=== PATIENT | male | born 1965 | race Hispanic/Latino ===

== ENCOUNTER 2019-02-26 23:32 | Inpatient (IN) | payer BC ==
[2019-02-27] MEDS ORDERED: Vancomycin HCl 1.5 GM in Sodium Chloride 0.9% 250 ML 300 ML IVPB SCH (00:30)
[2019-02-27] MEDS ORDERED: Ondansetron ODT 4 MG TAB SL PRN (01:45)
[2019-02-27] MEDS ORDERED: Ondansetron PF 4 MG/2 ML Vial IVP PRN (01:45)
[2019-02-27] MEDS ORDERED: Sodium Chloride 0.9% 1,000 ML IV SCH ×2 (01:45→04:30)
[2019-02-27 04:17] VITALS: BMI 44.6
[2019-02-27] MEDS ORDERED: Phenazopyridine HCl 97.5 MG TABLET PO SCH (04:30)
[2019-02-27] MEDS ORDERED: Vancomycin HCl 1 GM in Premix Bag 1 BAG IVPB SCH (04:45)
[2019-02-27] MEDS ORDERED: Vancomycin HCl 500 MG in Sodium Chloride 0.9% 100 ML IVPB SCH (04:45)
[2019-02-27] MEDS: Sodium Chloride 0.9% 1,000 ML IV SCH ×2 (08:44→21:11)
--- NOTE | 2019-02-27 08:55 | HP ---
CHIEF COMPLAINT: Fatigue and difficulty concentrating. HISTORY OF PRESENT ILLNESS: This patient is a 53-year-old male, who states he was working on an oil rig locally, although he lives down near [place], [place]. The patient states that he has stayed on the rig 14 days at a time. 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 He thought he was just out of shape and fatigued, but then started voiding frequently about every 10 minutes with a significant amount of urinary urgency. Yesterday, he also started developing some diarrhea, which he describes as green as in the color of an avocado, which just being very watery in nature. He also has some urgency and some incontinence there. The patient yesterday started feeling more as though he was having difficulty concentrating and borderline confused. He was having significant fever. He presented to the emergency department in [place]. There, his workup was notable for temperature of a 103, white count of 22,000, clear chest x-ray, and CT scan showing enlarged prostate with evidence of inflammation consistent with a prostatitis. The patient was diagnosed with sepsis and prostatitis, and was transferred here after receiving Rocephin and vancomycin. Of note, his urine did show some leukocytosis as well. Currently, the patient says he feels substantially better after having received some fluid hydration, although he reports he still feels like his mouth is very dry. REVIEW OF SYSTEMS: All systems reviewed, all pertinent positives and negatives noted in the history of present illness. PAST MEDICAL HISTORY: Notable for history of hypertension. However, the patient believes it was work related and once he changed his job conditions, he was able to go off his antihypertensives. SURGICAL HISTORY: LASIK. FAMILY HISTORY: Mother had diabetes. Father young with esophageal cancer. SOCIAL HISTORY: The patient is a nonsmoker, nondrug user. He drinks a modest amount of beer about 6 per week, but did not drink any beer at all when he is on his 14 days on the oil rig. He is . He is full code, and his would be his surrogate decision maker. ALLERGIES: NONE. CURRENT MEDICATIONS: None. PHYSICAL EXAMINATION: VITAL SIGNS: T-max here is 100.2. Temperature is 99.5, pulse 102, BP 119/56, respirations 20, O2 saturation 97% on room air. GENERAL APPEARANCE: Age-appropriate male, in no distress. He is awake, alert, oriented, pleasant, and cooperative. He is morbidly obese. HEENT: BARBARA. No OP lesions. His posterior oral airway is difficult to assess because of large tongue. NECK: Thick and difficult to examine as a result of that and his obesity. HEART: Regular rate and rhythm without murmurs, gallops, or rubs. LUNGS: Clear to auscultation bilaterally with good chest wall expansion and air exchange. ABDOMEN: Soft, nontender, and nondistended. He has no suprapubic tenderness. Bowel sounds are normal. EXTREMITIES: No cyanosis, clubbing, or edema. NEUROLOGICAL: The patient is normal. Has no deficits noted. Has spontaneous movement in all extremities and is cognitively intact. PSYCH: The patient has normal affect and behavior. LABORATORY DATA: White count was 22,000, hemoglobin 14.7, platelets 186, with 83% neutrophils, 5% bands, 4% lymphocytes, and 8% monocytes. Sodium was 131, potassium 3.7, chloride 100, CO2 is 24, BUN 11, creatinine 0.88, glucose 108. LFTs normal. Urinalysis showed small leukocyte esterase with 11 to 20 white cells and rare to few bacteria. Flu screen was negative. Chest x-ray reported was negative. CT showed the evidence of prostatitis. IMPRESSION AND PLAN: 1. Sepsis likely secondary to prostatitis, although the patient has some diarrhea as well. We will continue with the vancomycin and Rocephin. We will send stool studies and continue to hydrate. Of note, the patient's lactic acid level was normal at 1.4. The patient is feeling better after some hydration. Once it appears that he is stable, can switch over to p.o. antibiotics. 2. Hyponatremia. The patient may be slightly dehydrated. We will continue to hydrate and recheck his lab values in the morning. 3. Morbid obesity. Job ID: [id number] [facility]
[2019-02-27] MEDS: Phenazopyridine HCl 97.5 MG TABLET PO SCH ×2 (11:51→17:11)
[2019-02-27] MEDS: cefTRIAXone\\ROCEPHIN 2 GM in Sodium Chloride 0.9% 100 ML IVPB SCH (21:14)
[2019-02-27] MEDS: Acetaminophen 325 MG TAB PO PRN (23:14)
[2019-02-28] MEDS: Sodium Chloride 0.9% 1,000 ML IV SCH ×2 (04:11→14:45)
[2019-02-28 05:47] LABS: #Eosinphils 0.1 thou/uL (0.0-0.7); #Lymphocytes 2.4 thou/uL (1.20-3.40); #Neutrophils 15.5 thou/uL (1.40-6.50); %Basophils 0.1 % (0.0-1.0); %Eosinophils 0.4 % (0.0-10.0); %Lymphocytes 12.4 % (21.0-51.0); %Monocytes 5.3 % (0.0-10.0); %Neutrophils 81.8 % (42.0-75.0); Hemoglobin 13.8 g/dL (14.0-18.0); Mean Corpuscular Hemoglobin 29.1 pg (27.0-31.0); Mean Corpuscular Volume 88.1 fL (78.0-98.0); Mean Platelet Volume 8.2 fL (7.4-10.4); Platelet Count 154 thou/uL (130-400); RBC Distribution Width 13.7 % (11.5-14.5); Red Blood Cell (RBC) Count 4.73 mill/uL (4.70-6.10)
[2019-02-28 06:13] LABS: Anion Gap 17 mmol/L (10-20); BUN (Urea Nitrogen) 8 mg/dL (8.4-25.7); Calc. Creatinine Clearance 206 mL/min (70-130); Calcium 8.7 mg/dL (7.8-10.44); Carbon Dioxide 17 mmol/L (22-29); Chloride 106 mmol/L (98-107); Estimated GFR-MDRD Greater than 90; Glucose 117 mg/dL (70-105); Potassium 4.1 mmol/L (3.5-5.1); Sodium 136 mmol/L (136-145)
[2019-02-28] MEDS: Phenazopyridine HCl 97.5 MG TABLET PO SCH ×3 (07:27→17:27)
--- NOTE | 2019-02-28 11:01 | PRG ---
DATE OF SERVICE: 02/28/2019 SUBJECTIVE: Mr. Carrera is feeling significantly better today. He is getting up and around the room. He has a bit more energy and he is thinking clearly. He has not had any diarrhea since yesterday. OBJECTIVE: VITAL SIGNS: T-max is 100.9, temperature 98.8, pulse 91, respirations are 24, O2 saturation 94% on room air, and BP 132/73. GENERAL APPEARANCE: Age-appropriate male, he is in no distress. He is awake and alert. HEART: Regular without murmur. LUNGS: Clear. ABDOMEN: Benign. No CVAT. EXTREMITIES: No edema. NEUROLOGIC: Intact. PSYCHIATRIC: Normal affect and behavior. LABORATORY DATA: Urine cultures growing E coli, but low colony count. White count 19.0, hemoglobin 13.8, CO2 of 17, BUN 8, and creatinine 0.82. IMPRESSION AND PLAN: 1. Sepsis secondary to prostate infection. Continues to have white count, some low-grade acidosis. We will make him inpatient. Continue IV fluids and antibiotics. 2. Prostate infection. I counseled the patient at length. Sounds like he may have had some symptoms of a prostate infection a couple of years ago. It is possible that he has had a smoldering case of chronic prostatitis; given the E coli culture. We will discontinue the vancomycin. 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 Explained that he will need to be on antibiotics probably for full two weeks and will need to follow up with his PCP once he is discharged. 3. Hyponatremia, resolved with IV fluids. 4. Morbid obesity. Job ID: [id number]
[2019-02-28] MEDS: Acetaminophen 325 MG TAB PO PRN (18:11)
[2019-02-28] MEDS: cefTRIAXone\\ROCEPHIN 2 GM in Sodium Chloride 0.9% 100 ML IVPB SCH (22:00)
[2019-03-01] MEDS: Sodium Chloride 0.9% 1,000 ML IV SCH (00:26)
[2019-03-01] MEDS: Acetaminophen 325 MG TAB PO PRN (00:29)
[2019-03-01 06:06] LABS: #Basophils 0.1 thou/uL (0.0-0.2); #Eosinphils 0.1 thou/uL (0.0-0.7); #Lymphocytes 1.9 thou/uL (1.20-3.40); #Monocytes 0.6 thou/uL (0.11-0.59); #Neutrophils 7.5 thou/uL (1.40-6.50); %Basophils 0.5 % (0.0-1.0); %Eosinophils 0.9 % (0.0-10.0); %Lymphocytes 18.9 % (21.0-51.0); %Monocytes 6.1 % (0.0-10.0); %Neutrophils 73.6 % (42.0-75.0); Hemoglobin 13.1 g/dL (14.0-18.0); Mean Corpuscular Volume 87.9 fL (78.0-98.0); Mean Platelet Volume 7.7 fL (7.4-10.4); Platelet Count 158 thou/uL (130-400); RBC Distribution Width 13.6 % (11.5-14.5); Red Blood Cell (RBC) Count 4.51 mill/uL (4.70-6.10); White Blood Cell (WBC) Count 10.1 thou/uL (4.8-10.8)
[2019-03-01 06:26] LABS: Anion Gap 12 mmol/L (10-20); BUN (Urea Nitrogen) 6 mg/dL (8.4-25.7); Calc. Creatinine Clearance 209 mL/min (70-130); Calcium 8.8 mg/dL (7.8-10.44); Carbon Dioxide 25 mmol/L (22-29); Chloride 103 mmol/L (98-107); Estimated GFR-MDRD Greater than 90; Glucose 103 mg/dL (70-105); Potassium 3.7 mmol/L (3.5-5.1); Sodium 136 mmol/L (136-145)
[2019-03-01 07:28] VITALS: BP 129/74; TEMP 100.5
[2019-03-01] MEDS: Phenazopyridine HCl 97.5 MG TABLET PO SCH (09:09)
--- NOTE | 2019-03-01 16:20 | DIS ---
DATE OF ADMISSION: 02/27/2019 DATE OF DISCHARGE: 03/01/2019 DISCHARGE DIAGNOSES: 1. Sepsis. 2. Prostatitis. 3. Escherichia coli infection. 4. Mild metabolic encephalopathy. 5. Diarrhea. 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 The patient was having some urinary frequency and urgency, fever, and subsequently had some difficulty concentrating and reports he was incapable of completing the form that he needed to leave work and come to the hospital because of his inability to focus adequately. The patient presented initially to the emergency department in [place]. There , the patient had a white count of 22,000. He had a normal chest x-ray. A CT abdomen and pelvis, which revealed acute prostatitis, less likely prostate cancer with some hepatic steatosis and a 2-mm left renal cyst with no stones. The patient was felt to have acute prostate infection with metabolic encephalopathy and evidence of sepsis based on the white count and vital signs. He was subsequently transferred to this facility and started on Rocephin. The patient's urine culture did grow low colony counts of E coli with the Rocephin. The patient was feeling substantially better. His encephalopathy resolved promptly. He had some mild persistent urinary frequency and urgency, but that was also improved. Initially, the patient had some mild diarrhea. Stool studies were negative and that resolved promptly as well. He continued to have low-grade fever up to 100.5, but ultimately was felt to be stable for discharge with p.o. antibiotics after admission. The patient did recall that he had, had problems with his prostate a few years ago and had seen a physician in [place], but he does not recall the details of that. At this time, the patient feels well enough to travel back home, where he can follow up with his PCP. OBJECTIVE: VITAL SIGNS: Temperature is 100.5, pulse 80, respirations 18, O2 saturations 95% on room air, and blood pressure is 129/74. GENERAL: He is awake, alert, oriented, pleasant, cooperative. HEART: Regular rate and rhythm. LUNGS: Clear. ABDOMEN: Soft and nontender. EXTREMITIES: No edema. DIAGNOSTIC DATA: His white count is 10.1, and the E coli urine culture appears to be pansensitive to antibiotics. DISPOSITION: The patient will be discharged to home. DISCHARGE INSTRUCTIONS: He will have a regular diet and activity level. He will be on Levaquin 500 mg one p.o. daily. He is to follow up with his PCP as soon as he returns home and is encouraged to consider referral to a urologist. The patient should return to this or closest hospital should he develop any further symptoms or encephalopathy prior to the time of his followup. Time spent in discharge activities, including face time with the patient, was 39 min. Job ID: [id number]
== END 2019-03-01 11:00 | disposition home or self-care (01) | DRG 871 ==
LOC: ERS 23:32 → OBSVTOIN 02-27 00:20 → 2SW 02-27 00:20 → T4-A 02-28 11:26
PROVIDERS: ADMIT Hospitalist; ATTEND Hospitalist
DX: A41.9 Sepsis, unspecified organism (principal); G93.41 Metabolic encephalopathy; E87.1 Hypo-osmolality and hyponatremia; E87.2 Acidosis; Z68.41 Body mass index [BMI] 40.0-44.9, adult; N41.9 Inflammatory disease of prostate, unspecified; I10 Essential (primary) hypertension; E66.01 Morbid (severe) obesity due to excess calories; B96.20 Unspecified Escherichia coli [E. coli] as the cause of diseases classified elsewhere; R19.7 Diarrhea, unspecified
CPT/HCPCS: 36415; 80048; 83630; 85025; 87045; 87046; 87449; 87899; J0696; J3370; J3490; J7050